=== PATIENT | male | born 1975 | race Caucasian/White ===

== ENCOUNTER 2019-05-18 22:39 | Outpatient (REF) | payer MEDICARE, MEDICAID, SELFPAY ==
[2019-05-18 20:50] LABS: Hemoglobin A1C 7.6 % (3.8-5.6)
[2019-05-18 20:54] LABS: ALT 36 U/L (16-63); AST 25 U/L (15-37); Albumin 4.4 g/dL (3.4-5.0); Alkaline Phosphatase 88 U/L (46-116); Anion Gap 14.9 mmol/L (3-11); BUN 16 mg/dL (7-18); Bilirubin, Total 0.4 mg/dL (0.2-1.0); CO2 24.1 mmol/L (21.0-32.0); CREATININE 1.15 mg/dL (0.70-1.30); Calcium 9.2 mg/dL (8.5-10.1); Chloride 99 mmol/L (98-107); Cholesterol 331 mg/dL (<200); Glucose 217 mg/dL (74-106); HDL Cholesterol 42 mg/dL (40-60); Potassium 4.3 mmol/L (3.5-5.1); Sodium 138 mmol/L (136-145); Total Protein 7.9 g/dL (6.4-8.2); Triglyceride 666 mg/dL (<150)
[2019-05-18 21:08] LABS: LDL CHOLESTEROL 177 mg/dL (<100)
== END 2019-05-18 22:59 ==
LOC: NCHCN 22:39
PROVIDERS: PCP Physician Assistant Medical; Visit Provider Physician Assistant Medical
DX: E11.9 Type 2 diabetes mellitus without complications (principal); E78.2 Mixed hyperlipidemia; Z86.79 Personal history of other diseases of the circulatory system
CPT/HCPCS: 80053; 80061; 83721; 83036

== ENCOUNTER 2019-08-09 21:39 | Outpatient (REF) | payer MEDICARE, MEDICAID, SELFPAY ==
[2019-08-09 20:04] LABS: ALT 34 U/L (16-63); AST 21 U/L (15-37); Albumin 4.3 g/dL (3.4-5.0); Alkaline Phosphatase 88 U/L (46-116); Anion Gap 12.9 mmol/L (3-11); BUN 19 mg/dL (7-18); Bilirubin, Total 0.3 mg/dL (0.2-1.0); CO2 23.1 mmol/L (21.0-32.0); CREATININE 1.19 mg/dL (0.70-1.30); Calcium 9.3 mg/dL (8.5-10.1); Chloride 101 mmol/L (98-107); Cholesterol 254 mg/dL (<200); Glucose 188 mg/dL (74-106); HDL Cholesterol 33 mg/dL (40-60); Potassium 4.7 mmol/L (3.5-5.1); Sodium 137 mmol/L (136-145); Total Protein 7.8 g/dL (6.4-8.2); Triglyceride 588 mg/dL (<150)
[2019-08-09 20:05] LABS: Hemoglobin A1C 7.8 % (3.8-5.6)
[2019-08-09 20:16] LABS: LDL CHOLESTEROL 118 mg/dL (<100)
[2019-08-14 03:35] LABS: Codeine Negative ng/mL (Cutoff: 25); Dihydrocodeine Negative ng/mL (Cutoff: 25); Hydrocodone Negative ng/mL (Cutoff: 25); Hydromorphone Negative ng/mL (Cutoff: 25); Morphine Negative ng/mL (Cutoff: 25); Naloxone Negative ng/mL (Cutoff: 25); Norhydrocodone Negative ng/mL (Cutoff: 25); Noroxycodone Negative ng/mL (Cutoff: 25); Noroxymorphone Negative ng/mL (Cutoff: 25); Opiates Interpretation Negative.
== END 2019-08-09 21:59 ==
LOC: NCHCN 21:39
PROVIDERS: PCP Physician Assistant Medical; Visit Provider Nurse Practitioner Family
DX: E11.9 Type 2 diabetes mellitus without complications (principal); F11.21 Opioid dependence, in remission
CPT/HCPCS: 80053; 80061; 80361; 83721; 83036

== ENCOUNTER 2020-05-04 16:31 | Emergency (ER) | payer MEDICARE, MEDICAID, SELFPAY ==
[2020-05-04 16:42] VITALS: BP 108/65; PULSE 84; TEMP 37.1; O2SAT 96
--- NOTE | 2020-05-04 17:13 | ED.GENADUL_ITS ---
Discharge Plan Disposition Patient Disposition: HOME Condition: Stable Discharge Details Clinical Impression: Dermoid cyst Primary Care Provider: Eddy Leija ED Provider: Xochitl Brothers Home Meds and New Rx's Prescriptions: New sulfamethoxazole-trimethoprim [Bactrim DS] 800-160 mg tablet 1 tab PO BID 7 Days Qty: 14 RF: 0 No Action Lantus U-100 Insulin 100 UNIT/ML solution 40 units SQ QAM RF: 0 insulin lispro [Humalog U-100 Insulin] 100 UNIT/ML solution 5 - 10 units SQ AC RF: 0 Discharge Instructions Instructions: Cyst (ED) Additional Instructions: Follow up with primary care provider in 3-5 days. Return to ED sooner if any worsening or concerns. Increase oral fluids. Please take Tylenol or Ibuprofen with food every 4-6 hours as needed for pain and swelling. Please leave area covered with a dressing, do not take out or try to squeeze anything out of it. Please return to ED in 3 to 5 days if redness spreads, fever, chills or any worsening at all. Take antibiotic as directed. Follow-up with general surgery in 1 to 2 weeks for removal of cyst. Referrals: Eddy Leija PA [Primary Care Provider] - Tania Rob DO [OSTEOPATHIC DOCTOR] - Discharge Data Discharge Date/Time-TO BE ENTERED AT DEPARTURE: 05/04/20 18:58 Medical Decision Making 44-year-old male presents to the ER with chief complaint of right axillary abscess which she reports has been there for years he states that today he tried to squeeze it had increased pain increased redness and he felt something pop. He denies any fever chills, he does state that he has chronic pain which he has been using weed for. He does have a history of opiate abuse disorder which she states has been clean for 1 year. On initial exam he has approximately 1 cm x 1 cm raised area to his right mid axillary region with central fluctuance with surrounding erythema. Erythema measures approximately 7 cm in length and 5 cm in width. Abscess I&D attempted as noted in procedure note above, upon making incision no fluid was expressed but there was thick white cottage cheese type cells which I was able to push out somewhat. At this time it does appear to be more of a dermoid cyst than an abscess. Procedure was terminated due to patient complaint of pain, was able to palpate the cyst which is approximately 1.5 to 2 cm x 1.5 to 2 cm. At this time I do recommend follow-up with general surgery within 1 to 2 weeks for evaluation in the office, at this time the cyst is not fluid-filled and is too large to be dealt with in the emergency room. Patient will be placed on Bactrim antibiotic twice daily x7 days for possible cellulitis due to erythema surrounding cyst. Patient instructed on home care and discussed strict return instructions, verbalized understanding. This text was generated using [employer] system, please disregard any oddities of phrase or misspellings. HPI General Mode of arrival: ambulatory . Date/Time Provider Initiated Documentation: 05/04/20 16:31 . Limitations to Documentation: no limitations . Information obtained by: patient . HPI Narrative: 44-year-old male presents to the ER with chief complaint of right axillary abscess which she reports has been there for years he states that today he tried to squeeze it had increased pain increased redness and he felt something pop. He denies any fever chills, he does state that he has chronic pain which he has been using weed for. He does have a history of opiate abuse disorder which she states has been clean for 1 year. On initial exam he has approximately 1 cm x 1 cm raised area to his right mid axillary region with central fluctuance with surrounding erythema. Erythema measures approximately 7 cm in length and 5 cm in width. Related Data Home Medications Medication Instructions Recorded Confirmed Lantus U-100 Insulin 40 units SQ QAM 10/05/15 05/04/20 insulin lispro [Humalog U-100 5 - 10 units SQ AC 10/05/15 05/04/20 Insulin] sulfamethoxazole-trimethoprim 1 tab PO BID 7 Days #14 tab 05/04/20 [Bactrim DS] Previous Rx's Medication Instructions Recorded sulfamethoxazole-trimethoprim 1 tab PO BID 7 Days #14 tab 05/04/20 [Bactrim DS] Allergies Allergy/AdvReac Type Severity Reaction Status Date / Time risperidone [From Risperdal] Allergy Intermediate Anaphylaxsi Unverified 05/04/20 16:46 s bee stings Allergy Anaphylaxsi Uncoded 05/04/20 16:46 s General Stated Complaint: Cellulitis DARLENE: 3 Review of Systems Narrative: Constitutional: Negative for weight loss, alert and oriented, normal body habitus, appears comfortable. Appears under the influence. Does endorse weed. HEENT: Denies trauma, headaches, blurry vision, nasal discharge, sore throat, trouble swallowing. Chest: Denies chest pain, palpitations, irregular rhythm, hypertension. Respiratory: Denies Shortness of breath, cough, hemoptysis. GI: Denies abdominal pain, nausea, vomiting, diarrhea, constipation. : Denies dysuria, hematuria, flank pain, rectal bleeding. Neuro: Denies dizziness, blurry vision, weakness, syncope, headache or facial numbness. Hematologic: Denies easy bruising, intolerance to heat or cold, hair loss. [facility] Social History Smoking/Tobacco Use Status: Current every day Tobacco Type: e-cigarettes Smoking risk assessment performed?: Yes Alcohol Intake: current Alcohol Intake frequency: a few times a month Drug use: Daily Substance use type: marijuana Current gender identity: male Do you feel safe at home: Yes Do you feel safe in your relationship?: Yes Exam Narrative Exam Narrative: Constitutional: Alert and oriented x3. Appears stated age. Normal body habitus. Does appear under the influence of endorses marijuana. Head: Normocephalic, no trauma. Eyes: Pupils PERRLA, Red reflex noted, EOM's intact. Eyelids symmetrical without lesions, discharge, or swelling. ENT: Bilateral TM's WNL, External ear normal to inspection, no mastoid TTP, swelling, or erythema, Nasal turbinates WNL, no nasal discharge. Normal dentition, Posterior pharynx WNL, no exudate. Chest: RRR, Normal S1, S2, distal pulses intact. Resp: Lungs clear to auscultation bilaterally, no wheezes, rales, or rhonchi. Musculoskeletal: Normal gait, 5/5 strength to all four extremities. Skin: Has approximately 1 cm x 1 cm raised area to his right mid axillary region with central area of fluctuance, erythema extending approximately 7 cm in length by 5 cm with surrounding. Tender to touch. Capillary refill less than 2 sec. Neurologic: Cranial nerves II-XII intact. Alert and oriented x 3. DTR's intact. Hematologic/Lymphatic: No ecchymosis, no lymphadenopathy. Course Vital Signs Vital signs: Vital Signs Temperature 37.1 C 05/04/20 16:42 Pulse 84 05/04/20 16:42 Blood Pressure 108/65 05/04/20 16:42 Pulse Oximetry 96 05/04/20 16:42 Temperature 37.1 C 05/04/20 16:42 Temperature Source Temporal Artery Scan 05/04/20 16:42 Pulse 84 05/04/20 16:42 Respiratory Effort Non-Labored 05/04/20 16:48 Blood Pressure 108/65 05/04/20 16:42 Blood Pressure Position Sitting 05/04/20 16:42 Pulse Oximetry 96 05/04/20 16:42 Oxygen Delivery Method Room Air 05/04/20 16:42 Oxygen Flow Rate 0 05/04/20 16:42 Pain Level 5 05/04/20 16:42 Procedures Abscess I/D Site: Chest (Right axillary region) Side (if applicable): Right Sedation/analgesia: None Local Anesthetic: Lidocaine 1% and With Epi Amount of anesthesia used (mL): 3 Technique: Incised with #11 Blade Amount of fluid expressed (mL): 10 (Thick white cottage cheese type drainage) Irrigation: No Packing used?: None Complications: Pain
[2020-05-04] MEDS: Ibuprofen 600 MG TAB PO (17:18)
[2020-05-04] MEDS: Sulfameth/Trimeth DS TAB 1 TAB PO (17:18)
[2020-05-04 18:34] VITALS: BP 88/53; PULSE 70; RESP 18; O2SAT 96
[2020-05-04] MEDS: Sulfameth/Trimeth DS, 2 TABS/BTL 1 TAB PO (18:43)
--- NOTE | 2020-05-04 20:09 | NUR.NOTE ---
Nursing Note: Referral [facility] for follow up. Nelly Quintanilla
--- NOTE | 2020-05-05 16:52 | CMPROGNOTE_ITS ---
- If Service Date Differs Date of service: 05/05/20 Time of Service: 16:52 Care Management Progress Note CM was paged to discuss Otto's medications and insurance. Per report, he is prescribed insulin for type 2 DM, and he has not picked it up for 1.5 years. After reviewing the chart, it appears Otto has MCR and TOI. CM talked to Otto, who reported that he does have MCR and TOI. He stated that his [facility] policy number has changed and he does not have a new card, therefore he cannot slat pickler his prescriptions. He stated that he has called [facility] in the past for them to send him his new card, but he has moved many times, so it has never reached him. He reported that he is moving again in 2 weeks, and will call [facility] at that time. He stated that he has a good relationship with his PCP. CM recommended that he follow up with his PCP and ask for a referral to the clinical educator. CM will continue to follow.
== END 2020-05-04 18:58 | disposition home or self-care (01) ==
PROVIDERS: Emergency Provider Registered Nurse Emergency; PCP Physician Assistant Medical
DX: L72.0 Epidermal cyst (principal)
CPT/HCPCS: 10060

== ENCOUNTER → 2020-05-12 09:56 | Outpatient (BNVA) | payer MEDICARE, MEDICAID, SELFPAY | PROVIDERS: PCP Physician Assistant Medical; Referring Provider Physician Assistant Medical; Visit Provider Physical Therapy Assistant | DX: L72.3 Sebaceous cyst (principal); L08.9 Local infection of the skin and subcutaneous tissue, unspecified; E11.9 Type 2 diabetes mellitus without complications | CPT/HCPCS: 10060; 99215 ==

== ENCOUNTER 2020-05-12 13:45 | Outpatient (REF) | payer MEDICARE, MEDICAID, SELFPAY | END 2020-05-12 13:46 | disposition home or self-care (01) | LOC: LBN 13:45 | PROVIDERS: PCP Physician Assistant Medical; Visit Provider Physical Therapy Assistant | DX: L08.9 Local infection of the skin and subcutaneous tissue, unspecified (principal); L72.3 Sebaceous cyst | CPT/HCPCS: 87070; 87205 ==

== ENCOUNTER → 2020-05-15 13:02 | Outpatient (BNVA) | payer MEDICARE, MEDICAID, SELFPAY | PROVIDERS: PCP Physician Assistant Medical; Referring Provider Physician Assistant Medical; Visit Provider Surgery | DX: L72.3 Sebaceous cyst (principal); L08.9 Local infection of the skin and subcutaneous tissue, unspecified; E10.9 Type 1 diabetes mellitus without complications ==

== ENCOUNTER 2020-05-15 16:02 | Outpatient (REF) | payer MEDICARE, MEDICAID, SELFPAY ==
[2020-05-15 16:14] LABS: Abs Immature Grans 0.03 10^3/uL (0.0-0.06); Absolute Basophil Count 0.06 10^3/uL (0.0-0.2); Absolute Eosinophil Count 0.13 10^3/uL (0.0-0.7); Absolute Lymphocyte Count 3.67 10^3/uL (1.2-3.4); Absolute Monocyte Count 0.73 10^3/uL (0.1-0.8); Absolute Neutrophil Count 6.01 10^3/uL (1.2-6.7); Basophils % 0.6; Eosinophils % 1.2; HGB 13.4 g/dL (13.5-17.5); Immature Grans % 0.3; Lymphocytes % 34.5; MCH 31.8 pg (27.0-33.0); MCHC 34.4 % (32.0-36.0); MCV 92.4 fL (80-95); MPV 10.1 fL (8.0-11.0); Monocytes % 6.9; Neutrophils % 56.5; Nucleated RBC 0 %; Platelet Count 331 10^3/uL (130-400); RBC 4.22 10^6/uL (4.36-5.78); RDW 13.2 % (11.8-14.1); RDW-SD 45.3 fL; WBC 10.63 10^3/uL (4.4-10.8)
[2020-05-15 16:39] LABS: ALT 26 U/L (16-63); AST 21 U/L (15-37); Albumin 3.8 g/dL (3.4-5.0); Alkaline Phosphatase 89 U/L (46-116); BUN 13 mg/dL (7-18); Bilirubin, Total 0.3 mg/dL (0.2-1.0); Calcium 9.1 mg/dL (8.5-10.1); Chloride 102 mmol/L (98-107); Glucose 150 mg/dL (74-106); Potassium 4.3 mmol/L (3.5-5.1); Sodium 138 mmol/L (136-145); Total Protein 7.2 g/dL (6.4-8.2)
[2020-05-15 17:23] LABS: Hemoglobin A1C 9.5 % (<5.7)
== END 2020-05-15 16:03 | disposition home or self-care (01) ==
LOC: LBN 16:02
PROVIDERS: PCP Physical Therapy Assistant; Visit Provider Physical Therapy Assistant
DX: E10.9 Type 1 diabetes mellitus without complications (principal); N45.1 Epididymitis; L72.3 Sebaceous cyst; L08.9 Local infection of the skin and subcutaneous tissue, unspecified
CPT/HCPCS: 80053; 83036; 85025

== ENCOUNTER → 2020-05-19 09:30 | Outpatient (BNVA) | payer MEDICARE, MEDICAID, SELFPAY | PROVIDERS: PCP Physical Therapy Assistant; Referring Provider Physician Assistant Medical; Visit Provider Physical Therapy Assistant | DX: Z48.817 Encounter for surgical aftercare following surgery on the skin and subcutaneous tissue (principal); L72.3 Sebaceous cyst; E11.69 Type 2 diabetes mellitus with other specified complication ==

== ENCOUNTER → 2020-05-26 14:44 | Outpatient (BNVA) | payer MEDICARE, MEDICAID, SELFPAY | PROVIDERS: PCP Physical Therapy Assistant; Referring Provider Physical Therapy Assistant; Visit Provider Physical Therapy Assistant | DX: L72.3 Sebaceous cyst (principal); L08.9 Local infection of the skin and subcutaneous tissue, unspecified; E11.69 Type 2 diabetes mellitus with other specified complication | CPT/HCPCS: 99213 ==

== ENCOUNTER 2021-04-03 16:57 | Outpatient (REF) | payer MEDICARE, MEDICAID, SELFPAY ==
[2021-04-03 13:27] LABS: Hemoglobin A1C 10.2 % (<5.7)
[2021-04-03 13:28] LABS: ALT 28 U/L (16-63); AST 23 U/L (15-37); Albumin 3.9 g/dL (3.4-5.0); Alkaline Phosphatase 77 U/L (46-116); Anion Gap 10.4 mmol/L (3-11); BUN 16 mg/dL (7-18); Bilirubin, Total 0.3 mg/dL (0.2-1.0); CO2 27.6 mmol/L (21.0-32.0); CREATININE 1.3 mg/dL (0.70-1.30); Calcium 8.8 mg/dL (8.5-10.1); Chloride 102 mmol/L (98-107); Cholesterol 263 mg/dL (<200); Glucose 208 mg/dL (74-106); HDL Cholesterol 34 mg/dL (40-60); Magnesium 1.9 mg/dL (1.8-2.4); Potassium 4.8 mmol/L (3.5-5.1); Sodium 140 mmol/L (136-145); Total Protein 7.3 g/dL (6.4-8.2); Triglyceride 716 mg/dL (<150)
[2021-04-03 14:03] LABS: LDL CHOLESTEROL 119 mg/dL (<100)
== END 2021-04-03 16:58 | disposition home or self-care (01) ==
LOC: NCHCN 16:57
PROVIDERS: PCP Physical Therapy Assistant; Visit Provider Physician Assistant Medical
DX: E11.9 Type 2 diabetes mellitus without complications (principal); Z86.79 Personal history of other diseases of the circulatory system
CPT/HCPCS: 80053; 80061; 83721; 83036; 83735

== ENCOUNTER 2021-06-27 18:14 | Outpatient (REF) | payer MEDICARE, MEDICAID, SELFPAY ==
[2021-06-27 21:51] LABS: CREATININE 1.3 mg/dL (0.70-1.30); TSH (W/Ref FT4) 1.78 uIU/mL (0.36-3.74)
== END 2021-06-27 18:15 | disposition home or self-care (01) ==
LOC: LBN 18:14
PROVIDERS: PCP Physical Therapy Assistant; Visit Provider Physician Assistant Medical
DX: Z13.29 Encounter for screening for other suspected endocrine disorder (principal); E11.9 Type 2 diabetes mellitus without complications
CPT/HCPCS: 82565; 84443

== ENCOUNTER 2021-06-28 02:33 | Outpatient (CLI) | payer MEDICARE, MEDICAID, SELFPAY ==
--- NOTE | 2021-06-28 13:50 | DI.CT_ITS ---
Exam(s) CT NECK W EXAM: CT NECK W CLINICAL HISTORY: CERVICAL LYMPHADENOPATHY,R59.0,BILAT,? CA. TECHNIQUE: Imaging Protocol: Axial computed tomography images with coronal and sagittal reformatted images were created and reviewed CONTRAST MATERIAL: None. COMPARISON: MR MRI - CERVICAL SPINE W/WO from 09/02/2016 FINDINGS: Bones: No fractures or dislocations are seen. Spinal stimulator leads are noted within the canal from the C 3 4 level through down to the C6 level. Screws are seen within the spinous processes from C3 through C6. C2-3: Normal. C3-4: The disc osteophytes cause moderate bilateral neural foraminal encroachment.. C4-5: The disc osteophytes cause moderate bilateral neural foraminal encroachment C5-6: Severe narrowing of the C5-6 disc space with endplate osteophytes causing severe neural foramin al narrowing. C6-7: Moderate to severe narrowing of the disc space. Prominent endplate osteophytes cause severe bi lateral neural foraminal narrowing. C7-T1: Mild loss of disc height. Endplate osteophytes cause moderate to severe left lower neural for aminal narrowing and and mild right neural foraminal narrowing osteophytes cause right neural foramin a mild right neural foraminal encroachment at T 1 2. Visualized portions of the brain unremarkable. Carotid arteries unremarkable. Sinuses: Clear where visualized. Mastoid air cells: Clear where visualized. Soft Tissues: No evidence of adenopathy. Thyroid: Normal. Parotid glands: Normal. Submandibular glands: Left normal. Right mildly enlarged and inflamed with dilated duct. There is a stone measuring 4 millimeters seen distal of the duct. Lung apices: Small blebs at lung apices . No pneumothorax. IMPRESSION: Mild inflammation of the right submandibular gland with obstructing 4 millimeter stone at the distal aspect of the duct. No evidence of adenopathy. Degenerative disc changes causing multilevel bilateral neural foraminal narrowing in the cervical spi ne. Spinal stimulator leads and prior surgery. RADIATION DOSE DELIVERED: 499.57mGy.cm Total DLP 499.57mGy.cm Total DLP 499.57mGy.cm Total DLP DATA REPOSITORY: All CT scans at this facility are submitted to the National Radiology Data Registry (NRDR) Dose Index Registry (DIR) with the [employer] (A[employer]). RADIATION OPTIMIZATION: All CT scans at this facility use at least one of these dose optimization te chniques: automated exposure control; mA and/or kV adjustment per patient size (includes targeted exa ms where dose is matched to clinical indication); or iterative reconstruction.
== END 2021-06-28 02:53 ==
PROVIDERS: PCP Physical Therapy Assistant; Visit Provider Physician Assistant Medical
DX: R59.0 Localized enlarged lymph nodes (principal); M47.812 Spondylosis without myelopathy or radiculopathy, cervical region; K11.5 Sialolithiasis
CPT/HCPCS: 70491

== ENCOUNTER 2021-10-23 23:27 | Emergency (ER) | payer MEDICARE, MEDICAID, SELFPAY ==
[2021-10-23 23:30] VITALS: PULSE 121; RESP 20; TEMP 36.6; O2SAT 96
--- NOTE | 2021-10-23 23:45 | RT.EKG_ITS ---
APPROVED REPORT Exam: Resting ECG Reason for Exam: chest pain Patient Location: E HR:99 bpm ECG Measurements Heart Rate 99 AXIS AL 131 P 55 QRSd 82 QRS 52 QT 353 T 54 QTc 453 Conclusion Sinus rhythm...normal P axis, V-rate 60- 99 Physician:Sinus rhythm no significant ST depressions. Minimal less than a millimeter elevation in V2 , however review of prior EKG from 04/30/2013 demonstrates identical findings. No acute changes. No evidence of STEMI.
[2021-10-24] VITALS (57 sets, daily range): BP systolic 133–213; BP diastolic 83–149; PULSE 79–131; RESP 7–30; O2SAT 92–99
[2021-10-24] MEDS: Normal Saline 1,000 ML 1000 ML IV ×3 (00:05→02:04)
[2021-10-24 00:06] LABS: Abs Immature Grans 0.02 10^3/uL (0.0-0.06); Absolute Basophil Count 0.06 10^3/uL (0.0-0.2); Absolute Eosinophil Count 0.04 10^3/uL (0.0-0.7); Absolute Lymphocyte Count 1.77 10^3/uL (1.2-3.4); Absolute Monocyte Count 0.49 10^3/uL (0.1-0.8); Absolute Neutrophil Count 4.58 10^3/uL (1.2-6.7); Basophils % 0.9; Eosinophils % 0.6; HCT 43.9 % (40.0-50.0); HGB 15.5 g/dL (13.5-17.5); Immature Grans % 0.3; Lymphocytes % 25.4; MCH 32.5 pg (27.0-33.0); MCHC 35.3 % (32.0-36.0); MCV 92 fL (80-95); Neutrophils % 65.8; Platelet Count 233 10^3/uL (130-400); RBC 4.77 10^6/uL (4.36-5.78); RDW 13.1 % (11.8-14.1); RDW-SD 44.2 fL; WBC 6.96 10^3/uL (4.4-10.8)
[2021-10-24 00:29] LABS: ALT 48 U/L (16-63); AST 41 U/L (15-37); Albumin 4.4 g/dL (3.4-5.0); Alkaline Phosphatase 109 U/L (46-116); Anion Gap 19.9 mmol/L (3-11); BUN 12 mg/dL (7-18); Bilirubin, Total 0.3 mg/dL (0.2-1.0); CO2 19.1 mmol/L (21.0-32.0); CREATININE 1.4 mg/dL (0.70-1.30); Chloride 95 mmol/L (98-107); ETHANOL BLOOD 109.1 mg/dL (<10); Estimated GFR 55.05 (mL/min/1.73m2); Glucose 486 mg/dL (74-106); Potassium 3.9 mmol/L (3.5-5.1); Salicylate < 2.8 mg/dL (<2.8); Sodium 134 mmol/L (136-145); TSH (W/Ref FT4) 3.11 uIU/mL (0.36-3.74); Total Protein 8.4 g/dL (6.4-8.2)
[2021-10-24 00:35] LABS: Acetaminophen < 2 ug/mL (10-30)
[2021-10-24 00:44] LABS: Troponin I < 50 ng/L (<or=60)
[2021-10-24 01:24] LABS: *AMPHETAMINES SCREEN URINE Negative (Negative); *BARBITURATES SCREEN URINE Negative (Negative); *BENZODIAZEPINES SCREEN URINE Negative (Negative); Cannabinoids THC Positive (Negative); Cocaine Screen,Urine Negative (Negative); METHADONE URINE SCREEN Negative (Negative); OPIATES URINE SCREEN Negative (Negative)
[2021-10-24 01:32] LABS: Tricyclic Antidepressants Negative (Negative)
--- NOTE | 2021-10-24 01:34 | ED.GENADUL_ITS ---
Discharge Plan Disposition Patient Disposition: STILL A PATIENT Condition: Stable Discharge Details Chief Complaint: PsychEval Clinical Impression: Suicidal ideation, Manic episode Primary Care Provider: Eddy Leija ED Provider: Daniel Wilson Home Meds and New Rx's Prescriptions: No Action insulin glargine [Lantus U-100 Insulin] 100 UNIT/ML solution 40 units SQ QAM insulin lispro [Humalog U-100 Insulin] 100 UNIT/ML solution 5 - 10 units SQ AC Medical Decision Making This is a 46-year-old male with a past medical history of type 1 diabetes, previous depression and suicidality, chronic exotropia of the right eye who presents today from the police station for evaluation. Patient states that he drank some alcohol this evening in an effort to keep himself from hell. He states that he wants to end his life but only in an effort to prevent himself from going to hell. He does not know how he would end his life, but states really I just want to go to a place where I do not have to be in hell, I do not really want to , I just want to protect myself. Patient denies any homicidal ideations. He states that he has got like this in the past, in which case is he has drunk alcohol to help. He does admit to a very small amount of mild chest achiness, but states that it is because his heart is rubbing up against his ribs. He denies any tearing or ripping sensation. He denies any significant pain at this time. No other complaints at this time. Physical exam demonstrates mild chronic exotropia of the right eye. No signs of self-inflicted harm. Patient does appear mildly intoxicated but also has some flight of ideas and some tangential thinking. EKG demonstrates a minimal amount of ST elevation in V2, however this is likely repolarization, and J-point elevation has review of his prior EKGs demonstrate identical findings. No evidence of STEMI. Patient likely intoxicated, we will rehydrate, evaluate for metabolic cause of his current symptomatology, monitor closely and reassess. 1:40 AM Laboratory work-up has returned, CBC unremarkable, glucose elevated at 486. Anion gap elevated at 19.9, bicarb slightly low at 19. Concern for potential DKA versus HH NK. We will get a VBG, continue to rehydrate, give subcu insulin, monitor closely and reassess 2:28 AM The last few minutes the patient has become quite confrontational. He transition from being quite calm and relaxed, and having very upset. He states that he would like to talk to his immediately, that he will walk out of the emergency department if he does not get that right away. We will reach out to the patient's to further discuss the case to see if she would like to talk at this time. 7:19 AM Patient will be signed out to my colleague Dr. Bud Johnston. Patient is currently being evaluated by mental health. EKG 02: [address] Sin[address] rhythm no significant ST depressions. Minimal less than a millimeter elevation in V2, however review of prior EKG from 04/30/2013 demonstrates identical findings. No acute changes. No evidence of STEMI. HPI General Date/Time Provider Initiated Documentation: 10/23/21 23:44 . HPI Narrative: This is a 46-year-old male with a past medical history of type 1 diabetes, previous depression and suicidality, chronic exotropia of the right eye who presents today from the police station for evaluation. Patient states that he drank some alcohol this evening in an effort to keep himself from hell. He states that he wants to end his life but only in an effort to prevent himself from going to hell. He does not know how he would end his life, but states really I just want to go to a place where I do not have to be in hell, I do not really want to , I just want to protect myself. Patient denies any homicidal ideations. He states that he has got like this in the past, in which case is he has drunk alcohol to help. He does admit to a very small amount of mild chest achiness, but states that it is because his heart is rubbing up against his ribs. He denies any tearing or ripping sensation. He denies any significant pain at this time. No other complaints at this time. Related Data Home Medications Medication Instructions Recorded Confirmed insulin glargine 100 unit/mL 40 units SQ QAM 10/05/15 10/23/21 subcutaneous solution (Lantus U-100 Insulin) insulin lispro 100 unit/mL 5 - 10 units SQ AC 10/05/15 10/23/21 subcutaneous solution (Humalog U-100 Insulin) Allergies Allergy/AdvReac Type Severity Reaction Status Date / Time risperidone [From Risperdal] Allergy Intermediate Anaphylaxsi Unverified 10/23/21 23:32 s topiramate [From Topamax] AdvReac Intermediate increases Verified 10/23/21 23:32 nerve pain bee stings Allergy Severe Anaphylaxsi Uncoded 10/23/21 23:32 s General Stated Complaint: PsychEval DARLENE: 2 Review of Systems All systems reviewed & are unremarkable except as noted in HPI and below PFSH All Active Problems (Updated 10/24/21 @ 07:20 by Daniel Wilson DO) Suicidal ideation (Acute) Manic episode (Acute) Sialoadenitis of submandibular gland (Acute) Cyst of salivary gland (Acute) Infected sebaceous cyst (Acute) Acute epididymitis (Acute) Anemia (Acute) Diabetes mellitus type 1 (Acute) Surgical History Status post insertion of spinal cord stimulator (~2019) Social History Smoking/Tobacco Use Status: Current every day Tobacco Type: e-cigarettes Smoking risk assessment performed?: Yes Alcohol Intake: current Alcohol Intake frequency: 0-2 drinks per day Alcohol type: beer and other Drug use: Daily Substance use type: marijuana Details: Patient drank 12 pack of twisted tea starting at 13:00 today. Reports marijuana use daily. Current gender identity: male Do you feel safe at home: Yes Do you feel safe in your relationship?: Yes Exam Narrative Exam Narrative: 1.Const: Well-nourished, Well-developed, appearing stated age 2.Eyes: PERRL, no conjunctival injection, and symmetrical lids. right patient does have chronic exotropia of the right eye. 3.ENT: Atraumatic external nose and ears. Dry MM. Neck: Symmetric, trachea midline, No thyromegaly. 4.CVS: +S1/S2, No murmurs or gallops. Peripheral pulses 2+ and equal in all extremities. Brisk capillary refill in all extremities. 5.RESP: Unlabored respiratory effort. Clear to auscultation bilaterally. No wheezes rales or rhonchi 6.GI: Soft, Nontender/Nondistended, No hepatosplenomegaly. No guarding or rebound. 7.MSK: Normocephalic/Atraumatic, Extremities w/o deformity or ttp No cyanosis or clubbing, Normal movement of all extremities 8.Skin: Warm, Dry. No rashes or lesions. 9.Neuro: economic analyst II-XII grossly intact. Sensation grossly intact, no focal neurologic deficits. 10.Psych: (AAO) x3. Somewhat tearful, with some tangential thinking and flight of ideas Course Vital Signs Vital signs: Vital Signs Temperature 36.6 C 10/23/21 23:30 Pulse 121 H 10/23/21 23:30 Respiratory Rate 20 10/23/21 23:30 Pulse Oximetry 96 10/23/21 23:30 Temperature 36.6 C 10/23/21 23:30 Temperature Source Skin 10/23/21 23:30 Pulse 121 H 10/23/21 23:30 Respiratory Rate 20 10/23/21 23:30 Respiratory Effort Non-Labored 10/23/21 23:37 Pulse Oximetry 96 10/23/21 23:30 Oxygen Delivery Method Room Air 10/23/21 23:30 Oxygen Flow Rate 0 10/23/21 23:30 Lab/Test Results Lab/Test Results: Laboratory Tests Range/Units 10/24/21 10/24/21 10/24/21 00:00 00:00 00:00 WBC (4.4-10.8) 10^3/uL 6.96 RBC (4.36-5.78) 10^6/uL 4.77 Hgb (13.5-17.5) g/dL 15.5 Hct (40.0-50.0) % 43.9 MCV (80-95) fL 92 MCH (27.0-33.0) pg 32.5 MCHC (32.0-36.0) % 35.3 RDW (11.8-14.1) % 13.1 Plt Count (130-400) 10^3/uL 233 MPV (8.0-11.0) fL 10.0 Immature Gran % 0.3 Neutrophils % 65.8 Lymphocytes % 25.4 Monocytes % 7.0 Eosinophils % 0.6 Basophils % 0.9 Nucleated RBC % (0.0-0.3) % 0.0 Absolute Neutrophils (1.2-6.7) 10^3/uL 4.58 Absolute Lymphocytes (1.2-3.4) 10^3/uL 1.77 Absolute Monocytes (0.1-0.8) 10^3/uL 0.49 Absolute Eosinophils (0.0-0.7) 10^3/uL 0.04 Absolute Basophils (0.0-0.2) 10^3/uL 0.06 Sodium (136-145) mmol/L 134 L Potassium (3.5-5.1) mmol/L 3.9 Chloride (98-107) mmol/L 95 L Carbon Dioxide (21.0-32.0) mmol/L 19.1 L Anion Gap (3-11) mmol/L 19.9 H BUN (7-18) mg/dL 12 Creatinine (0.70-1.30) mg/dL 1.4 H Estimated GFR/1.73 m2 (mL/min/1.73m2) 55.05 Glucose (74-106) mg/dL 486 H Calcium (8.5-10.1) mg/dL 9.0 Total Bilirubin (0.2-1.0) mg/dL 0.3 AST (15-37) U/L 41 H ALT (16-63) U/L 48 Alkaline Phosphatase (46-116) U/L 109 Troponin I (<or=60) ng/L Total Protein (6.4-8.2) g/dL 8.4 H Albumin (3.4-5.0) g/dL 4.4 TSH (0.36-3.74) uIU/mL 3.11 Salicylates (<2.8) mg/dL < 2.8 Urine Opiates Screen (Negative) Urine Methadone Screen (Negative) Acetaminophen (10-30) ug/mL < 2 Ur Barbiturates Screen (Negative) Ur Tricyclics Screen (Negative) Ur Amphetamines Screen (Negative) U Benzodiazepines Scrn (Negative) Urine Cocaine Screen (Negative) Ur THC Screen (Negative) Ethyl Alcohol (<10) mg/dL 109.1 H Range/Units 10/24/21 10/24/21 00:00 00:55 WBC (4.4-10.8) 10^3/uL RBC (4.36-5.78) 10^6/uL Hgb (13.5-17.5) g/dL Hct (40.0-50.0) % MCV (80-95) fL MCH (27.0-33.0) pg MCHC (32.0-36.0) % RDW (11.8-14.1) % Plt Count (130-400) 10^3/uL MPV (8.0-11.0) fL Immature Gran % Neutrophils % Lymphocytes % Monocytes % Eosinophils % Basophils % Nucleated RBC % (0.0-0.3) % Absolute Neutrophils (1.2-6.7) 10^3/uL Absolute Lymphocytes (1.2-3.4) 10^3/uL Absolute Monocytes (0.1-0.8) 10^3/uL Absolute Eosinophils (0.0-0.7) 10^3/uL Absolute Basophils (0.0-0.2) 10^3/uL Sodium (136-145) mmol/L Potassium (3.5-5.1) mmol/L Chloride (98-107) mmol/L Carbon Dioxide (21.0-32.0) mmol/L Anion Gap (3-11) mmol/L BUN (7-18) mg/dL Creatinine (0.70-1.30) mg/dL Estimated GFR/1.73 m2 (mL/min/1.73m2) Glucose (74-106) mg/dL Calcium (8.5-10.1) mg/dL Total Bilirubin (0.2-1.0) mg/dL AST (15-37) U/L ALT (16-63) U/L Alkaline Phosphatase (46-116) U/L Troponin I (<or=60) ng/L < 50 Total Protein (6.4-8.2) g/dL Albumin (3.4-5.0) g/dL TSH (0.36-3.74) uIU/mL Salicylates (<2.8) mg/dL Urine Opiates Screen (Negative) Negative Urine Methadone Screen (Negative) Negative Acetaminophen (10-30) ug/mL Ur Barbiturates Screen (Negative) Negative Ur Tricyclics Screen (Negative) Negative Ur Amphetamines Screen (Negative) Negative U Benzodiazepines Scrn (Negative) Negative Urine Cocaine Screen (Negative) Negative Ur THC Screen (Negative) Positive A Ethyl Alcohol (<10) mg/dL PAWSS Have you Been Recently Intoxicated or Drunk Within the Last 30 days?: Yes Have you Ever Experienced Previous Episodes of Alcohol Withdrawal?: No Have you ever Experienced Withdrawal Seizures?: No Have you ever Experienced Delirium Tremens(DT)s?: No Have you ever undergone Alcohol Rehabilitation Treatment (i.e, inpt ot outpatient treatment programs)?: No Have you ever Experienced Blackouts?: No Have you ever Combined Alcohol with other Downers within the last 90 days?: No Have you ever Combined Alcohol with any other Substance of Abuse during the last 90 days?: No Positive Blood Alcohol level on Presentation? [PCS.BAL]: No Evidence of Increased Autonomic Activity (i.e. HR>120, tremor, sweating, agitation, nausea)?: No Result: 1
[2021-10-24 02:02] LABS: BE (Venous) -6 mmol/L (-2-3); HCO3 (Venous) 19 mmol/L (23-28); O2 Sat (Venous) 95 %; TCO2 (Venous) 17 mmol/L (24-29); pCO2 (Venous) 32 mmHg (41-51); pH (Venous) 7.38 (7.31-7.41); pO2 (Venous) 73 mmHg
[2021-10-24] MEDS: Insulin REGULAR-Human 100 UNITS/ML UNIT 12 UNITS SC (02:04)
[2021-10-24 05:39] LABS: Source Nasal/Nares
[2021-10-24 05:51] LABS: Anion Gap 13.9 mmol/L (3-11); BUN 9 mg/dL (7-18); CO2 22.1 mmol/L (21.0-32.0); CREATININE 1.2 mg/dL (0.70-1.30); Chloride 102 mmol/L (98-107); Glucose 232 mg/dL (74-106); Potassium 3.8 mmol/L (3.5-5.1); Sodium 138 mmol/L (136-145)
[2021-10-24 05:52] LABS: ETHANOL BLOOD < 3.0 mg/dL (<10)
[2021-10-24 06:35] LABS: COVID-19 PCR Negative (Negative)
== END 2021-10-24 08:19 | disposition home or self-care (01) ==
PROVIDERS: Student in an Organized Health Care Education/Training Program; Emergency Provider Emergency Medicine; PCP Physician Assistant Medical
DX: F30.9 Manic episode, unspecified (principal); R07.89 Other chest pain; H50.111 Monocular exotropia, right eye; R94.31 Abnormal electrocardiogram [ECG] [EKG]; E10.9 Type 1 diabetes mellitus without complications; F17.290 Nicotine dependence, other tobacco product, uncomplicated; Z20.822 Contact with and (suspected) exposure to COVID-19; Z79.899 Other long term (current) drug therapy; Z79.4 Long term (current) use of insulin
CPT/HCPCS: 36416; 80048; 80053; 80307; 82805; 82962; 87635; 93005; 96361; 96372; 96374; 99285; 80320; 80329; 84443; 84484; 85025; 93010